=== PATIENT | male | born 1985 | race Caucasian/White ===

== ENCOUNTER 2016-12-09 12:38 | Emergency (ER) | payer OTHER ==
[~2016-12-09] VITALS: Ht 185.4 cm; Wt 107.5 kg
[2016-12-09] MEDS ORDERED: LIDOCAINE 1% HCL (LOCAL ANESTH.) INJ 20ML MDV ONE (14:05)
[2016-12-09] MEDS ORDERED: LIDOCAINE 1% HCL (LOCAL ANESTH.) INJ 20ML MDV IJ ONE ×3 (14:15→15:00)
[2016-12-09] MEDS ORDERED: TETANUS IMMUNE GLOBULIN 250 UNIT/ML SYRG IM ONE (14:15)
[2016-12-09] MEDS ORDERED: cefTRIAXone SOD 1,000 MG VL IM ONE (14:15)
[2016-12-09 14:18] VITALS: BP 133/88
[2016-12-09] MEDS ORDERED: HYDROmorphone HCL 2 MG/ML VL IM ONE (14:45)
[2016-12-09] MEDS ORDERED: TETANUS-DIPTH-ACEL PERTUSSIS 0.5ML SYRG IM ONE (14:45)
[2016-12-09] MEDS ORDERED: BACITRACIN-POLYMYXIN B TOPICAL OINT UD TOP ONE ×2 (15:44→16:15)
[2016-12-09] MEDS ORDERED: MUPIROCIN 2% OINT 22GM TOP ONE (16:00)
== END 2016-12-09 16:02 | disposition home or self-care (01) ==
LOC: ER 12:38
DX: S71.112A Laceration without foreign body, left thigh, initial encounter (principal); W26.9XXA Contact with unspecified sharp object(s), initial encounter; Y93.89 Activity, other specified; Y99.8 Other external cause status; Y92.89 Other specified places as the place of occurrence of the external cause
CPT/HCPCS: 12036; 90471; 96372; 99291; J0696; J1170; J2001; 12006